=== PATIENT | female | born 1995 | race African-American/Black ===

== ENCOUNTER 2018-05-16 17:06 | Emergency (ER) | payer MEDICAID, OTHER | END 2018-05-16 23:44 | disposition left against medical advice (07) | LOC: ER 23:44 | DX: Z53.21 Procedure and treatment not carried out due to patient leaving prior to being seen by health care provider (principal) ==

== ENCOUNTER 2018-06-24 10:09 | Emergency (ER) | payer MEDICAID ==
[2018-06-24] MEDS ORDERED: ONDANSETRON HCL 4MG/2ML INJ IV STA (11:11)
[2018-06-24] MEDS ORDERED: SODIUM CHLORIDE 0.9% 1,000 ML IV ONE ×2 (11:11→13:42)
[2018-06-24] MEDS ORDERED: MORPHINE SULFATE 2 MG/ML CPJ (NOT FOR IM USE) IV ONE (11:15)
[2018-06-24 13:07] LABS: HEMOGLOBIN. 13.1 g/dL (12.0-16.0); MEAN CORPUSCULAR HEMOGLOBIN 31.1 pg (28.0-32.0); MEAN CORPUSCULAR VOLUME 92.5 fL (81.0-99.0); MEAN PLATELET VOLUME 8.5 fl (7.4-10.4); PLATELET 255 x1000/uL (130-400); RED BLOOD CELL COUNT 4.22 mill/uL (4.2-5.4); RED CELL DISTRIBUTION WIDTH 13.9 % (11.6-14.6)
[2018-06-24 13:13] LABS: CHLORIDE 106 mEq/L (98-107); INR 1.1; PROTHROMBIN TIME 11.4 sec (9.1-11.1)
[2018-06-24 13:15] LABS: CLARITY URINE CLEAR (CLEAR); COLOR URINE YELLOW (YELLOW); KETONES URINE TRACE (NEGATIVE); LEUKOCYTE ESTERASE URINE NEGATIVE (NEGATIVE); NITRITE URINE NEGATIVE (NEGATIVE); OCCULT BLOOD URINE NEGATIVE (NEGATIVE); PROTEIN URINE NEGATIVE (NEGATIVE); SPECIFIC GRAVITY URINE 1.023 (1.005-1.030); UROBILINOGEN URINE 0.2 E.U./dL (0.2-1.0)
[2018-06-24] MEDS ORDERED: ACETAMINOPHEN 325MG TABLET PO ONE (13:30)
[2018-06-24 13:40] LABS: PLATELET ESTIMATE NORMAL
[2018-06-24 13:56] LABS: *AMPHETAMINES SCREEN URINE NEGATIVE (NEGATIVE); *BARBITURATES SCREEN URINE NEGATIVE (NEGATIVE)
[2018-06-24 13:57] LABS: *BENZODIAZEPINES SCREEN URINE NEGATIVE (NEGATIVE); *COCAINE SCREEN URINE NEGATIVE (NEGATIVE); METHADONE URINE SCREEN NEGATIVE (NEGATIVE); OPIATES URINE SCREEN NEGATIVE (NEGATIVE)
[2018-06-24 13:58] LABS: PHENCYCLIDINE URINE SCREEN NEGATIVE (NEGATIVE)
[2018-06-24 14:01] LABS: CANNABINOID URINE SCREEN PRESUMTIVE POSITIVE (NEGATIVE)
[2018-06-24 14:39] VITALS: BP 113/59
== END 2018-06-24 14:46 | disposition home or self-care (01) ==
LOC: ER 10:42
DX: R10.84 Generalized abdominal pain (principal); R11.2 Nausea with vomiting, unspecified; R03.0 Elevated blood-pressure reading, without diagnosis of hypertension
CPT/HCPCS: 36415; 80053; 80305; 81003; 81025; 83690; 85025; 85610; 96361; 96374; 96375; 99284; J2270; J2405; J7030; Z7610

== ENCOUNTER 2019-05-31 13:50 | Emergency (ER) | payer MEDICAID ==
[~2019-05-31] VITALS: Ht 170.2 cm; Wt 58.0 kg
[2019-05-31 14:26] VITALS: BP 115/69
== END 2019-05-31 15:40 | disposition left against medical advice (07) ==
LOC: ER 13:50
DX: Z53.21 Procedure and treatment not carried out due to patient leaving prior to being seen by health care provider (principal)

== ENCOUNTER 2019-06-02 09:05 | Emergency (ER) | payer MEDICAID ==
[~2019-06-02] VITALS: Ht 172.7 cm; Wt 58.0 kg
[2019-06-02] MEDS ORDERED: LIDOCAINE HCL/PF 1% 10 MG/ML 5ML VIAL IJ ONE (10:00)
[2019-06-02] MEDS ORDERED: BACITRACIN ZINC OINT UDPKT TOP ONE (10:00)
[2019-06-02] MEDS ORDERED: IBUPROFEN 600MG TABLET PO ONE (10:15)
[2019-06-02] MEDS ORDERED: BACITRACIN 15GM TUBE TOP SCH (10:30)
[2019-06-02] MEDS ORDERED: HYDROCODONE/ACETAMINOPHEN 5/325MG TABLET PO ONE (11:00)
[2019-06-02 11:01] VITALS: BP 118/67
== END 2019-06-02 11:21 | disposition home or self-care (01) ==
LOC: ER 09:05
DX: S91.201A Unspecified open wound of right great toe with damage to nail, initial encounter (principal); X58.XXXA Exposure to other specified factors, initial encounter; Y93.89 Activity, other specified; Y92.89 Other specified places as the place of occurrence of the external cause; R03.0 Elevated blood-pressure reading, without diagnosis of hypertension
CPT/HCPCS: 11730; 99284; J3490